=== PATIENT | male | born 1985 | race Hispanic/Latino ===

== ENCOUNTER 2018-05-05 01:54 | Emergency (ER) | payer SELFPAY ==
--- NOTE | 2018-05-05 03:48 | EDPHYS ---
Physician Documentation [facility] Name: Bruce Rosales Age: 32 yrs Sex: Male : 1985 Arrival Date: 05/05/2018 Time: 01:58 Bed 14 Private MD: ED Physician Oneal Zeng HPI: 05/05 07:01 This 32 yrs old Male presents to ER via Ambulatory with complaints of Itching, tw4 Rash. 07:01 The patient's rash thought to be caused by food. The rash is located on the body tw4 diffusely. The rash can be described as urticarial. Onset: The symptoms/episode began/occurred today. Associated signs and symptoms: Pertinent positives: itching, Pertinent negatives: difficulty breathing, swelling of lips, swelling of throat, swelling of tongue, vomiting, wheezing. Severity of symptoms: At their worst the symptoms were moderate in the emergency department the symptoms are unchanged. The patient has not experienced similar symptoms in the past. Historical: - Allergies: 02:28 No Known Allergies; bb - Home Meds: 02:28 None [Active]; bb - PMHx: 02:28 None; bb - PSHx: 02:28 None; bb - Immunization history:: Adult Immunizations up to date. - Social history:: Smoking status: Patient/guardian denies using tobacco, Patient uses alcohol, occasionally. Patient/guardian denies using street drugs. - Ebola Screening: : No symptoms or risks identified at this time. ROS: 07:01 Constitutional: Negative for fever, chills, and weight loss, Eyes: Negative for injury, tw4 pain, redness, and discharge, Cardiovascular: Negative for chest pain, palpitations, and edema, Respiratory: Negative for shortness of breath, cough, wheezing, and pleuritic chest pain, Abdomen/GI: Negative for abdominal pain, nausea, vomiting, diarrhea, and constipation, Back: Negative for injury and pain, MS/Extremity: Negative for injury and deformity. 07:01 Skin: Positive for rash, diffusely. Exam: 07:01 Constitutional: This is a well developed, well nourished patient who is awake, alert, tw4 and in no acute distress. Head/Face: Normocephalic, atraumatic. Chest/axilla: Normal chest wall appearance and motion. Nontender with no deformity. No lesions are appreciated. Cardiovascular: Regular rate and rhythm with a normal S1 and S2. No gallops, murmurs, or rubs. Normal PMI, no JVD. No pulse deficits. Respiratory: Lungs have equal breath sounds bilaterally, clear to auscultation and percussion. No rales, rhonchi or wheezes noted. No increased work of breathing, no retractions or nasal flaring. Abdomen/GI: Soft, non-tender, with normal bowel sounds. No distension or tympany. No guarding or rebound. No evidence of tenderness throughout. MS/ Extremity: Pulses equal, no cyanosis. Neurovascular intact. Full, normal range of motion. 07:01 Skin: consistent with urticaria. Vital Signs: 02:28 BP 120 / 86; Pulse 68; Resp 16 S; Temp 98.2(O); Pulse Ox 96% on R/A; Weight 92.99 kg bb (R); Height 5 ft. 8 in. (172.72 cm) (R); 03:00 BP 119 / 65; Pulse 69; Resp 18; Pulse Ox 100% ; rr5 04:00 BP 121 / 70; Pulse 65; Resp 17; Pulse Ox 99% ; rr5 04:30 BP 119 / 65; Pulse 71; Resp 17; Pulse Ox 99% ; rr5 02:28 Body Mass Index 31.17 (92.99 kg, 172.72 cm) bb MDM: 02:27 Patient medically screened. tw4 07:01 Differential diagnosis: allergic reaction. Data reviewed: vital signs, nurses notes. tw4 Data interpreted: Pulse oximetry: Interpretation: normal. Counseling: I had a detailed discussion with the patient and/or guardian regarding: the historical points, exam findings, and any diagnostic results supporting the discharge/admit diagnosis. Medication response: Solumedrol. Response to treatment: and as a result, I will discharge patient. Special discussion: I discussed with the patient/guardian in detail that at this point there is no indication for admission to the hospital. It is understood, however, that if the symptoms persist or worsen the patient needs to return immediately for re-evaluation. Administered Medications: 04:00 Drug: SOLU-Medrol 125 mg Route: IM; Site: right gluteus; rr5 04:35 Follow up: Response: No adverse reaction rr5 04:02 Drug: Benadryl 25 mg Route: PO; rr5 04:35 Follow up: Response: No adverse reaction rr5 04:02 Drug: Pepcid 20 mg Route: PO; rr5 04:35 Follow up: Response: No adverse reaction rr5 Disposition: 05/05/18 03:47 Discharged to Home. Impression: Allergic reaction. - Condition is Stable. - Discharge Instructions: Food Allergy, Allergies, [id number]. - Prescriptions for Medrol (Stevenson) 4 mg Oral Tablets, Dose Pack - take 1 tablet by ORAL route as directed - follow package instructions; 1 packet. - Medication Reconciliation Form, Thank You Letter, Antibiotic Education, Prescription Opioid Use form. - Follow up: Private Physician; When: Upon discharge from the Emergency Department; Reason: If symptoms return, Recheck today's complaints, Continuance of care. - Problem is new. - Symptoms have improved. Signatures: Marlee Pittman RN RN Oneal Chamberlain MD MD tw4 John Ruiz RN RN rr5 Corrections: (The following items were deleted from the chart) 04:35 03:47 05/05/2018 03:47 Discharged to Home. Impression: Allergic reaction. Condition is rr5 Stable. Forms are Medication Reconciliation Form, Thank You Letter, Antibiotic Education, Prescription Opioid Use. Follow up: Private Physician; When: Upon discharge from the Emergency Department; Reason: If symptoms return, Recheck today's complaints, Continuance of care. Problem is new. Symptoms have improved. tw4
--- NOTE | 2018-05-05 03:48 | ER ---
Nurse's Notes [facility] Name: Bruce Rosales Age: 32 yrs Sex: Male : 1985 Arrival Date: 05/05/2018 Time: 01:58 Bed 14 Private MD: Diagnosis: Allergic reaction Presentation: 05/05 02:26 Presenting complaint: Friend states: pt went to dinner tonight and ate a burrito and bb drank a michilada then about 45 min later broke out in an itchy rash pt denies any known allergies. Transition of care: patient was not received from another setting of care. Onset: The symptoms/episode began/occurred suddenly. Anaphylaxis evaluation, no signs or symptoms of anaphylaxis were noted. Onset of symptoms was May 05, 2018. Risk Assessment: Do you want to hurt yourself or someone else? Patient reports no desire to harm self or others. Initial Sepsis Screen: Does the patient meet any 2 criteria? No. Patient's initial sepsis screen is negative. Does the patient have a suspected source of infection? No. Patient's initial sepsis screen is negative. Care prior to arrival: None. 02:26 Method Of Arrival: Ambulatory bb 02:26 Acuity: MOI 4 bb Historical: - Allergies: 02:28 No Known Allergies; bb - Home Meds: 02:28 None [Active]; bb - PMHx: 02:28 None; bb - PSHx: 02:28 None; bb - Immunization history:: Adult Immunizations up to date. - Social history:: Smoking status: Patient/guardian denies using tobacco, Patient uses alcohol, occasionally. Patient/guardian denies using street drugs. - Ebola Screening: : No symptoms or risks identified at this time. Screenin:00 Abuse screen: Denies threats or abuse. Denies injuries from another. Nutritional rr5 screening: No deficits noted. Tuberculosis screening: No symptoms or risk factors identified. Fall Risk IV access (20 points). Total Garnett Fall Scale indicates No Risk (0-24 pts). Assessment: 02:50 General: Appears in no apparent distress. uncomfortable, Behavior is calm, cooperative, rr5 appropriate for age. Pain: Denies pain. Neuro: Level of Consciousness is awake, alert, obeys commands, Oriented to person, place, time, situation, Appropriate for age. Cardiovascular: Capillary refill < 3 seconds Patient's skin is warm and dry. Respiratory: Airway is patent Respiratory effort is even, unlabored, Respiratory pattern is regular, symmetrical, Breath sounds are clear Denies shortness of breath. GI: No signs and/or symptoms were reported involving the gastrointestinal system. : No signs and/or symptoms were reported regarding the genitourinary system. EENT: No signs and/or symptoms were reported regarding the EENT system. Derm: Skin temperature is warm Rash noted that is red, urticaria, on whole body. Musculoskeletal: Capillary refill < 3 seconds, Range of motion: intact in all extremities. 03:55 Reassessment: Patient appears in no apparent distress at this time. No changes from rr5 previously documented assessment. seen and examined by ED provider with order made and carried out. 04:32 Reassessment: Patient appears in no apparent distress at this time. Patient is alert, rr5 oriented x 3, equal unlabored respirations, skin warm/dry/pink. discharge instruction given and explained without complaints made. Patient states feeling better. Patient states symptoms have improved. Vital Signs: 02:28 BP 120 / 86; Pulse 68; Resp 16 S; Temp 98.2(O); Pulse Ox 96% on R/A; Weight 92.99 kg bb (R); Height 5 ft. 8 in. (172.72 cm) (R); 03:00 BP 119 / 65; Pulse 69; Resp 18; Pulse Ox 100% ; rr5 04:00 BP 121 / 70; Pulse 65; Resp 17; Pulse Ox 99% ; rr5 04:30 BP 119 / 65; Pulse 71; Resp 17; Pulse Ox 99% ; rr5 02:28 Body Mass Index 31.17 (92.99 kg, 172.72 cm) bb ED Course: 01:58 Patient arrived in ED. es 02:27 Oneal Zeng MD is Attending Physician. tw4 02:28 Triage completed. bb 02:28 Arm band placed on Patient placed in an exam room, on a stretcher, on pulse oximetry. bb Family accompanied patient. 02:40 John Ruiz RN is Primary Nurse. rr5 02:40 Patient has correct armband on for positive identification. Placed in gown. Bed in low rr5 position. Call light in reach. Pulse ox on. NIBP on. 02:45 Inserted saline lock: 20 gauge in right forearm, using aseptic technique. rr5 04:33 No provider procedures requiring assistance completed. IV discontinued, intact, rr5 bleeding controlled, No redness/swelling at site. Pressure dressing applied. Administered Medications: 04:00 Drug: SOLU-Medrol 125 mg Route: IM; Site: right gluteus; rr5 04:35 Follow up: Response: No adverse reaction rr5 04:02 Drug: Benadryl 25 mg Route: PO; rr5 04:35 Follow up: Response: No adverse reaction rr5 04:02 Drug: Pepcid 20 mg Route: PO; rr5 04:35 Follow up: Response: No adverse reaction rr5 Outcome: 03:47 Discharge ordered by . tw4 04:33 Discharged to home ambulatory. rr5 04:33 Condition: stable 04:33 Discharge instructions given to patient, Instructed on discharge instructions, follow up and referral plans. medication usage, Demonstrated understanding of instructions, follow-up care, medications, Prescriptions given X 1. 04:35 Patient left the ED. rr5 Signatures: Sabrina Cooper Brenda, RN RN bb Oneal Zeng MD MD tw4 John Ruiz RN RN rr5 Corrections: (The following items were deleted from the chart) 04:14 02:45 Inserted saline lock: 20 gauge in right forearm, using aseptic technique. Blood rr5 collected. rr5
[2018-05-05] MEDS ORDERED: FAMOTIDINE 20 MG TAB ONE (04:05)
[2018-05-05] MEDS ORDERED: DIPHENHYDRAMINE 25 MG TAB/CAP ONE (04:05)
[2018-05-05] MEDS ORDERED: METHYLPREDNISOLONE 125 MG INJ ONE (04:05)
== END 2018-05-05 04:35 | disposition home or self-care (01) ==
LOC: ER 01:54
DX: R21 Rash and other nonspecific skin eruption (principal)
CPT/HCPCS: 96372; 99284; J2930

== ENCOUNTER 2020-04-10 16:27 | Emergency (ER) | payer BC, SELFPAY ==
--- NOTE | 2020-04-10 17:46 | ER ---
Nurse's Notes [facility] Name: Bruce Rosales Age: 34 yrs Sex: Male : 1985 Arrival Date: 04/10/2020 Time: 16:32 Bed 17 Private MD: Diagnosis: Rash and other nonspecific skin eruption Presentation: 04/10 16:44 Chief complaint: Patient states: Rash with itching to body for 2 days. No cough or ll1 fever. No N/V/D. Coronavirus screen: Client denies travel out of the [place] in the last 14 days. At this time, the client does not indicate any symptoms associated with coronavirus-19. Ebola Screen: Patient denies travel to an Ebola-affected area in the 21 days before illness onset. Initial Sepsis Screen: Does the patient meet any 2 criteria? No. Patient's initial sepsis screen is negative. Does the patient have a suspected source of infection? Yes: Other: rash. Risk Assessment: Do you want to hurt yourself or someone else? Patient reports no desire to harm self or others. Onset of symptoms was April 09, 2020. 16:44 Method Of Arrival: Ambulatory ll1 16:44 Acuity: MOI 4 ll1 Historical: - Allergies: 16:44 No Known Allergies; ll1 - PMHx: 16:44 None; ll1 - PSHx: 16:44 None; ll1 - Immunization history:: Flu vaccine status is unknown. - Social history:: Smoking status: Patient denies any tobacco usage or history of. Screenin:30 Abuse screen: Denies threats or abuse. Denies injuries from another. Nutritional dm14 screening: No deficits noted. Tuberculosis screening: No symptoms or risk factors identified. Fall Risk None identified. Assessment: 17:30 General: Appears in no apparent distress. comfortable, well groomed, Behavior is calm, dm14 cooperative, appropriate for age. 17:49 Pain: Denies pain. dm14 Vital Signs: 16:44 BP 139 / 79; Pulse 89; Resp 17; Temp 98.0; Pulse Ox 96% ; Weight 90.72 kg; Height 5 ft. ll1 9 in. (175.26 cm); Pain 0/10; 17:30 BP 112 / 70; Pulse 87; Resp 16; Pulse Ox 98% ; dm14 18:10 BP 128 / 76; Pulse 84; Resp 18; Pulse Ox 99% ; dm14 16:44 Body Mass Index 29.53 (90.72 kg, 175.26 cm) ll1 ED Course: 16:32 Patient arrived in ED. mr 16:44 Arm band placed on. ll1 16:46 Triage completed. 1 17:12 Lauro Sood PA is PHCP. [facility] 17:12 Dl Lakhani MD is Attending Physician. [facility] 17:15 Yovana Inman, BRUNO is Primary Nurse. dm14 17:30 Patient has correct armband on for positive identification. Bed in low position. Call dm14 light in reach. 17:30 No provider procedures requiring assistance completed. Patient did not have IV access dm14 during this emergency room visit. Administered Medications: No medications were administered Outcome: 17:45 Discharge ordered by . [facility] 18:10 Discharged to home dm14 18:10 Condition: stable 18:10 Discharge instructions given to patient, Instructed on discharge instructions, medication usage, Demonstrated understanding of instructions, medications. 18:17 Patient left the ED. dm14 Signatures: Lauro Sood PA PA jm Meghann RodríguezFlorecita, RN RN 1 Yovana Inman, BRUNO RN dm14 Corrections: (The following items were deleted from the chart) 17:49 17:49 General: Appears in no apparent distress. comfortable, well groomed, Behavior is dm14 calm, cooperative, appropriate for age, dm14
--- NOTE | 2020-04-10 17:46 | EDPHYS ---
Physician Documentation [facility] Name: Bruce Rosales Age: 34 yrs Sex: Male : 1985 Arrival Date: 04/10/2020 Time: 16:32 Bed 17 Private MD: ED Physician Dl Lakhani HPI: 04/10 17:43 This 34 yrs old Male presents to ER via Ambulatory with complaints of Rash. [facility] 17:43 The patient's rash thought to be caused by an unknown cause. The rash is located on the jmm right arm and left arm. Onset: The symptoms/episode began/occurred 1 day(s) ago. Associated signs and symptoms: Pertinent positives: itching, Pertinent negatives: difficulty breathing, fever, Pain swelling of lips, swelling of throat, swelling of tongue. The patient has not experienced similar symptoms in the past. Historical: - Allergies: 16:44 No Known Allergies; ll1 - PMHx: 16:44 None; ll1 - PSHx: 16:44 None; ll1 - Immunization history:: Flu vaccine status is unknown. - Social history:: Smoking status: Patient denies any tobacco usage or history of. ROS: 17:43 Constitutional: Negative for fever, chills, and weight loss, Cardiovascular: Negative jm for chest pain, palpitations, and edema, Respiratory: Negative for shortness of breath, cough, wheezing, and pleuritic chest pain. 17:43 Skin: Positive for rash. 17:43 All other systems are negative. Exam: 17:43 Constitutional: This is a well developed, well nourished patient who is awake, alert, jmm and in no acute distress. Head/Face: atraumatic. Eyes: EOMI, no conjunctival erythema appreciated ENT: Moist Mucus Membranes Neck: Trachea midline, Supple Chest/axilla: Normal chest wall appearance and motion. Cardiovascular: Regular rate and rhythm. No edema appreciated Respiratory: Normal respirations, no respiratory distress appreciated Abdomen/GI: Non distended, soft Back: Normal ROM 17:43 MS/ Extremity: Moves all extremities, no obvious deformities appreciated, no edema noted to the lower extremities Neuro: Awake and alert, normal gait Psych: Behavior is normal, Mood is normal, Patient is cooperative and pleasant 17:43 Skin: on the right arm and left arm. Vital Signs: 16:44 BP 139 / 79; Pulse 89; Resp 17; Temp 98.0; Pulse Ox 96% ; Weight 90.72 kg; Height 5 ft. ll1 9 in. (175.26 cm); Pain 0/10; 17:30 BP 112 / 70; Pulse 87; Resp 16; Pulse Ox 98% ; dm14 18:10 BP 128 / 76; Pulse 84; Resp 18; Pulse Ox 99% ; dm14 16:44 Body Mass Index 29.53 (90.72 kg, 175.26 cm) ll1 MDM: 17:42 Patient medically screened. [facility] 17:44 Data reviewed: vital signs, nurses notes. Counseling: I had a detailed discussion with quintin the patient and/or guardian regarding: the historical points, exam findings, and any diagnostic results supporting the discharge/admit diagnosis, the need for outpatient follow up, to return to the emergency department if symptoms worsen or persist or if there are any questions or concerns that arise at home. ED course: Patient is alert and non toxic in appearance in the ED. No signs of resp distress. patient is advised to follow up with pcp and otherwise given strict return precautions. Patient understood and agrees with the plano fcare. . Administered Medications: No medications were administered Disposition: 04/10/20 17:45 Discharged to Home. Impression: Rash and other nonspecific skin eruption. - Condition is Stable. - Discharge Instructions: Rash. - Prescriptions for Hydroxyzine HCl 25 mg Oral Tablet - take 1 tablet by ORAL route every 6 hours As needed; 30 tablet. Prednisone 20 mg Oral Tablet - take 3 tablet by ORAL route once daily for 5 days; 15 tablet. - Medication Reconciliation Form, Thank You Letter, Antibiotic Education, Prescription Opioid Use, Work release form form. - Follow up: Private Physician; When: 2 - 3 days; Reason: Recheck today's complaints, Continuance of care, Re-evaluation by your physician. Addendum: 04/13/2020 05:04 Co-signature as Attending Physician, Dl Lakhani MD I agree with the assessment and k dr plan of care. Signatures: Dl Lakhani MD MD kdr Mickail, Joel, PA PA jmm Lewis, Lynsay RN RN ll1 Yovana Inman RN RN dm14 Corrections: (The following items were deleted from the chart) 04/10 18:17 17:45 04/10/2020 17:45 Discharged to Home. Impression: Rash and other nonspecific skin dm14 eruption. Condition is Stable. Forms are Medication Reconciliation Form, Thank You Letter, Antibiotic Education, Prescription Opioid Use. Follow up: Private Physician; When: 2 - 3 days; Reason: Recheck today's complaints, Continuance of care, Re-evaluation by your physician. quintin
[2020-04-10 18:50] VITALS: TEMP 98
[2020-04-10 18:52] VITALS: BP 128/76; O2SAT 99
== END 2020-04-10 18:17 | disposition home or self-care (01) ==
LOC: ER 16:27
DX: R21 Rash and other nonspecific skin eruption (principal)
CPT/HCPCS: 99281

== ENCOUNTER 2020-04-28 23:31 | Inpatient (IN) | payer BC, SELFPAY ==
[2020-04-29] MEDS ORDERED: MORPHINE 4 MG/ML SYR ONE (01:30)
[2020-04-29] MEDS ORDERED: FAMOTIDINE 20 MG/2 ML VIAL IV ONE (01:30)
[2020-04-29] MEDS ORDERED: ONDANSETRON 4 MG/2 ML VIAL ONE ×3 (01:30→11:50)
[2020-04-29] MEDS ORDERED: NA CHLORIDE 0.9% 1,000 ML ONE (01:30)
[2020-04-29 01:44] LABS: ALT/SGPT 73 U/L (12-78); AST/SGOT 26 U/L (15-37); Albumin 4.1 g/dL (3.4-5.0); Alkaline Phosphatase 78 U/L (45-117); BUN Blood Urea Nitrogen 14 mg/dL (7-18); Bicarbonate 26 mmol/L (21-32); Bilirubin Direct 0.1 mg/dL (0-0.2); Bilirubin Total 0.5 mg/dL (0.2-1.0); Glucose Level 143 mg/dL (74-106); Lipase 102 U/L (73-393); Potassium 3.9 mmol/L (3.5-5.1); Sodium Level 138 mmol/L (136-145)
[2020-04-29 02:13] LABS: Basophils % 0.4 % (0-1.3); Hematocrit 43.9 % (39.6-49.0); Lymphocytes % 4.5 % (15.3-44.8); MPV 8.7 fL (7.6-11.3); RBC Red Blood Cell Count 5.41 M/uL (4.33-5.43)
--- NOTE | 2020-04-29 02:30 | ER ---
Nurse's Notes [facility] Name: Bruce Rosales Age: 34 yrs Sex: Male : 1985 Arrival Date: 04/29/2020 Time: 00:12 Bed 6 Private MD: Diagnosis: Abdominal tenderness;Acute appendicitis Presentation: 04/29 00:19 Acuity: MOI 3 sg 00:19 Chief complaint: Patient states: upper and lower abdominal pain with nausea that comes sg and goes. Initial Sepsis Screen: Does the patient meet any 2 criteria? No. Patient's initial sepsis screen is negative. Does the patient have a suspected source of infection? No. Patient's initial sepsis screen is negative. Risk Assessment: Do you want to hurt yourself or someone else? Patient reports no desire to harm self or others. Onset of symptoms was April 29, 2020. 00:19 Method Of Arrival: Ambulatory sg 03:00 Ebola Screen: No symptoms or risks identified at this time. ea 03:01 Coronavirus screen: At this time, the client does not indicate any symptoms associated ea with coronavirus-19. Historical: - Allergies: 01:03 No Known Allergies; sg - PSHx: 01:03 None; sg - Immunization history:: Adult Immunizations unknown. - Family history:: not pertinent. - Social history:: Smoking status: unknown. Screenin:25 Abuse screen: Denies threats or abuse. Nutritional screening: No deficits noted. em Tuberculosis screening: No symptoms or risk factors identified. Fall Risk None identified. Assessment: 01:20 General: Appears in no apparent distress. comfortable, Behavior is calm, cooperative, em appropriate for age, Denies fever. Pain: Complains of pain in left upper quadrant and right upper quadrant Pain currently is 1 out of 10 on a pain scale. Neuro: Level of Consciousness is awake, alert, obeys commands, Oriented to person, place, time, situation. Cardiovascular: Capillary refill < 3 seconds Patient's skin is warm and dry. Respiratory: Airway is patent Respiratory effort is even, unlabored, Respiratory pattern is regular, symmetrical. GI: Abdomen is flat, Bowel sounds present X 4 quads. Abd is soft X 4 quads Abdomen is tender to palpation in right upper quadrant and left upper quadrant Reports nausea, vomiting. Derm: Skin is intact, is healthy with good turgor, Skin is pink, warm \T\ dry. Musculoskeletal: Capillary refill < 3 seconds, Range of motion: intact in all extremities. 01:24 Reassessment: pt currently refused pain medications at this time. em 01:45 Reassessment: pt wheeled to CT via stretcher. em 03:00 Reassessment: Patient and/or family updated on plan of care and expected duration. Pain ea level reassessed. Patient is alert, oriented x 3, equal unlabored respirations, skin warm/dry/pink. 04:14 Reassessment: Patient appears in no apparent distress at this time. Patient and/or em family updated on plan of care and expected duration. Pain level reassessed. Patient is alert, oriented x 3, equal unlabored respirations, skin warm/dry/pink. 07:49 General: Appears in no apparent distress. comfortable, Behavior is calm, cooperative. ss Neuro: Level of Consciousness is awake, alert, obeys commands. Respiratory: Airway is patent Respiratory effort is even, unlabored, Respiratory pattern is regular, symmetrical. : No signs and/or symptoms were reported regarding the genitourinary system. EENT: Oral mucosa is moist. 07:50 Reassessment: Attempted to call report. Nurse unavailable and will call back soon. 07:55 Reassessment: Report given to BRUON Mccarthy. Vital Signs: 01:39 BP 115 / 72; Pulse 85; Resp 18; Temp 97.5; Pulse Ox 99% on R/A; Weight 95.25 kg; Height em 5 ft. 9 in. (175.26 cm); Pain 1/10; 03:49 BP 113 / 81; Pulse 87; Resp 18; Pulse Ox 97% on R/A; em 01:39 Body Mass Index 31.01 (95.25 kg, 175.26 cm) ED Course: 00:12 Patient arrived in ED. am4 00:19 Triage completed. sg 01:00 Nik Lopez MD is Attending Physician. [facility] 01:02 Arm band placed on. sg 01:10 He Hernandez, BRUNO is Primary Nurse. em 01:14 Inserted saline lock: 20 gauge in right antecubital area, using aseptic technique. ds4 Blood collected. 01:25 Patient has correct armband on for positive identification. Call light in reach. Side em rails up X2. Pulse ox on. NIBP on. 02:00 CT Abd/Pelvis - IV Contrast Only In Process Unspecified. EDMS 02:29 William Miles MD is Hospitalizing Provider. [facility] 03:00 No provider procedures requiring assistance completed. Patient admitted, IV remains in ea place. Administered Medications: 01:24 Drug: NS 0.9% 1000 ml Route: IV; Rate: 1 bolus; Site: right antecubital; em 03:25 Follow up: IV Status: Completed infusion; IV Intake: 1000ml em 02:59 Drug: Zosyn 3.375 grams Route: IVPB; Infused Over: 60 mins; Site: right antecubital; ea 07:37 Follow up: IV Status: Completed infusion; infusion completed prior to recieving report ss Intake: 03:25 IV: 1000ml; Total: 1000ml. em Outcome: 02:30 Decision to Hospitalize by Provider. [facility] 03:01 Instructed on the need for admit. ea 08:10 Patient left the ED. hb Signatures: Dispatcher [employer] Brock Choe, RN RN Nik Alcaraz MD MD cha Munoz, Edgar, RN RN Thu Cabezas RN RN Cuate Wilkins ds4 Radha Smallwood RN RN Sonali Redmond RN RN Mariah Jones am4
--- NOTE | 2020-04-29 02:30 | EDPHYS ---
Physician Documentation [facility] Name: Bruce Rosales Age: 34 yrs Sex: Male : 1985 Arrival Date: 04/29/2020 Time: 00:12 Bed 6 Private MD: ED Physician Nik Lopez HPI: 04/29 01:07 This 34 yrs old Male presents to ER via Ambulatory with complaints of mercy Abdominal Pain. 01:07 The patient presents with abdominal pain in the epigastric area, in the upper abdomen. mercy Onset: The symptoms/episode began/occurred 6 hour(s) ago. The symptoms do not radiate. Associated signs and symptoms: none. The symptoms are described as constant, crampy. Modifying factors: The symptoms are alleviated by nothing, the symptoms are aggravated by food. Severity of pain: At its worst the pain was moderate in the emergency department the pain is unchanged. The patient has experienced similar episodes in the past, a few times. Historical: - Allergies: 01:03 No Known Allergies; sg - PSHx: 01:03 None; sg - Immunization history:: Adult Immunizations unknown. - Family history:: not pertinent. - Social history:: Smoking status: unknown. ROS: 01:07 Constitutional: Negative for fever, chills, and weight loss, Eyes: Negative for injury, mercy pain, redness, and discharge, ENT: Negative for injury, pain, and discharge, Neck: Negative for injury, pain, and swelling, Cardiovascular: Negative for chest pain, palpitations, and edema, Respiratory: Negative for shortness of breath, cough, wheezing, and pleuritic chest pain, Back: Negative for injury and pain, : Negative for injury, bleeding, discharge, and swelling, MS/Extremity: Negative for injury and deformity, Skin: Negative for injury, rash, and discoloration, Neuro: Negative for headache, weakness, numbness, tingling, and seizure, Psych: Negative for depression, anxiety, suicide ideation, homicidal ideation, and hallucinations, Allergy/Immunology: Negative for hives, rash, and allergies, Endocrine: Negative for neck swelling, polydipsia, polyuria, polyphagia, and marked weight changes, Hematologic/Lymphatic: Negative for swollen nodes, abnormal bleeding, and unusual bruising. 01:07 Abdomen/GI: Positive for abdominal pain, of the right upper quadrant and left upper quadrant. Exam: 01:07 Constitutional: This is a well developed, well nourished patient who is awake, alert, mercy and in no acute distress. Head/Face: Normocephalic, atraumatic. Eyes: Pupils equal round and reactive to light, extra-ocular motions intact. Lids and lashes normal. Conjunctiva and sclera are non-icteric and not injected. Cornea within normal limits. Periorbital areas with no swelling, redness, or edema. ENT: Nares patent. No nasal discharge, no septal abnormalities noted. Tympanic membranes are normal and external auditory canals are clear. Oropharynx with no redness, swelling, or masses, exudates, or evidence of obstruction, uvula midline. Mucous membranes moist. Neck: Trachea midline, no thyromegaly or masses palpated, and no cervical lymphadenopathy. Supple, full range of motion without nuchal rigidity, or vertebral point tenderness. No Meningismus. Chest/axilla: Normal chest wall appearance and motion. Nontender with no deformity. No lesions are appreciated. Cardiovascular: Regular rate and rhythm with a normal S1 and S2. No gallops, murmurs, or rubs. Normal PMI, no JVD. No pulse deficits. Respiratory: Lungs have equal breath sounds bilaterally, clear to auscultation and percussion. No rales, rhonchi or wheezes noted. No increased work of breathing, no retractions or nasal flaring. Back: No spinal tenderness. No costovertebral tenderness. Full range of motion. Male : Normal genitalia with no discharge or lesions. Skin: Warm, dry with normal turgor. Normal color with no rashes, no lesions, and no evidence of cellulitis. MS/ Extremity: Pulses equal, no cyanosis. Neurovascular intact. Full, normal range of motion. Neuro: Awake and alert, GCS 15, oriented to person, place, time, and situation. Cranial nerves II-XII grossly intact. Motor strength 5/5 in all extremities. Sensory grossly intact. Cerebellar exam normal. Normal gait. Psych: Awake, alert, with orientation to person, place and time. Behavior, mood, and affect are within normal limits. 01:07 Abdomen/GI: Inspection: abdomen appears normal, Bowel sounds: normal, active, Palpation: mild abdominal tenderness, moderate abdominal tenderness, in the epigastric area, right upper quadrant and left upper quadrant, Liver: no appreciated palpable abnormalities, Hernia: not appreciated. Vital Signs: 01:39 BP 115 / 72; Pulse 85; Resp 18; Temp 97.5; Pulse Ox 99% on R/A; Weight 95.25 kg; Height em 5 ft. 9 in. (175.26 cm); Pain 1/10; 03:49 BP 113 / 81; Pulse 87; Resp 18; Pulse Ox 97% on R/A; em 01:39 Body Mass Index 31.01 (95.25 kg, 175.26 cm) em MDM: 01:00 Patient medically screened. [facility] 01:09 Differential diagnosis: cholecystitis, Cholelithiasis, diverticulitis, gastritis, mercy gastroesophageal reflux disease, Irritable bowel syndrome, non-specific abd pain, pancreatitis, Peptic Ulcer Disease, urinary tract infection. Data reviewed: vital signs, nurses notes, lab test result(s), EKG, radiologic studies, CT scan. Data interpreted: library monitor: rate is 85 beats/min, rhythm is regular, Pulse oximetry: on room air is 100 %. Test interpretation: by ED physician or midlevel provider: ECG, plain radiologic studies. Counseling: I had a detailed discussion with the patient and/or guardian regarding: the historical points, exam findings, and any diagnostic results supporting the discharge/admit diagnosis, the presence of at least one elevated blood pressure reading (>120/80) during this emergency department visit. 04/29 01:06 Order name: Basic Metabolic Panel; Complete Time: 01:57 [facility] 04/29 01:06 Order name: CBC with Diff [facility] 04/29 01:06 Order name: Hepatic Function; Complete Time: 01:57 [facility] 04/29 01:06 Order name: Lipase; Complete Time: 01:57 [facility] 04/29 01:45 Order name: CREATININE WHOLE BLOOD; Complete Time: 01:57 [facility] 04/29 02:30 Order name: Manual Differential [facility] 04/29 01:06 Order name: CT Abd/Pelvis - IV Contrast Only [facility] 04/29 03:09 Order name: COVID-19 : Document "Date of Symptom Onset" if Symptomatic. em 04/29 03:49 Order name: Urine Dipstick--Ancillary (enter results) tt3 04/29 04:29 Order name: CORONAVIRUS [facility] 04/29 05:30 Order name: SARS-COV-2 RT PCR [facility] 04/29 01:06 Order name: IV Saline Lock; Complete Time: 01:18 [facility] 04/29 01:06 Order name: Labs collected and sent; Complete Time: 01:18 [facility] 04/29 01:06 Order name: Urine Dipstick-Ancillary (obtain specimen); Complete Time: 03:48 [facility] Administered Medications: 01:24 Drug: NS 0.9% 1000 ml Route: IV; Rate: 1 bolus; Site: right antecubital; em 03:25 Follow up: IV Status: Completed infusion; IV Intake: 1000ml em 02:59 Drug: Zosyn 3.375 grams Route: IVPB; Infused Over: 60 mins; Site: right antecubital; ea 07:37 Follow up: IV Status: Completed infusion; infusion completed prior to recieving report ss Disposition: 04/29/20 02:30 Hospitalization ordered by William Miles for Observation. Preliminary diagnosis are Abdominal tenderness, Acute appendicitis. - Bed requested for Telemetry/MedSurg (observation). - Status is Observation. hb - Condition is Stable. - Problem is new. - Symptoms have improved. Signatures: Dispatcher [employer] [facility] Jennie Hodgosn RN RN dw Gay, Steven, RN RN sg Anderson, Corey, MD MD cha Munoz, Edgar RN RN em Radha Smallwood RN RN hb Antunez, Elena, RN RN ea Smirch, Shelby RN Corrections: (The following items were deleted from the chart) 03:12 02:30 Hospitalization Ordered by William Miles MD for Observation. Preliminary diagnosis sg is Abdominal tenderness; Acute appendicitis. Bed requested for Telemetry/MedSurg (observation). Status is Observation. Condition is Stable. Problem is new. Symptoms have improved. [facility] 05:40 03:12 04/29/2020 02:30 Hospitalization Ordered by William Miles MD for Observation. dw Preliminary diagnosis is Abdominal tenderness; Acute appendicitis. Bed requested for [facility] ER HOLD. Status is Observation. Condition is Stable. Problem is new. Symptoms have improved. sg 08:10 05:40 04/29/2020 02:30 Hospitalization Ordered by William Miles MD for Observation. hb Preliminary diagnosis is Abdominal tenderness; Acute appendicitis. Bed requested for Telemetry/MedSurg (observation). Status is Observation. Condition is Stable. Problem is new. Symptoms have improved. dw
[2020-04-29] MEDS ORDERED: PIPER/TAZO/NS 3.375gm 3.375 GM/100 ML BAG ONE (03:09)
[2020-04-29 03:45] LABS: Blood Morphology Comment NOT SEEN (NOT SEEN); Platelet Estimate ADEQ
[2020-04-29] MEDS ORDERED: ACETAMINOPHEN 500 MG TAB PO PRN (04:47)
[2020-04-29] MEDS ORDERED: D5 0.45 NS 1,000 ML IV SCH (04:47)
[2020-04-29] MEDS ORDERED: MORPHINE 4 MG/ML SYR IV PRN (04:47)
[2020-04-29] MEDS ORDERED: ONDANSETRON 4 MG/2 ML VIAL IV PRN (04:47)
[2020-04-29] MEDS ORDERED: D5 0.45 NS 1,000 ML IV ONE (05:10)
[2020-04-29] MEDS: PIPER/TAZO/NS 3.375gm 3.375 GM/100 ML BAG IVPB SCH ×2 (07:00→12:57)
[2020-04-29 08:46] VITALS: BMI 31.1
[2020-04-29] MEDS: FAMOTIDINE 20 MG/2 ML VIAL IV SCH ×2 (09:00→12:03)
[2020-04-29] MEDS ORDERED: Ringers Lactate 1,000 ML IV ONE ×2 (09:21→11:44)
[2020-04-29] MEDS ORDERED: BUPIVACA 0.5%/EPI 0.0005%/PF 30 ML VIAL ONE (09:31)
[2020-04-29] MEDS ORDERED: BUPIVACAINE 0.25% PF 30 ML VIAL ONE (09:31)
[2020-04-29] MEDS ORDERED: FENTANYL CITR 100 MCG/2 ML ONE ×3 (09:54→11:03)
[2020-04-29] MEDS ORDERED: propofoL 200 MG/20 ML VIAL IV ONE (09:55)
[2020-04-29] MEDS ORDERED: MIDAZOLAM HCL 2 MG/2 ML INJ ONE (09:55)
[2020-04-29] MEDS ORDERED: LIDOCAINE 2% MPF 5 ML VIAL ONE (09:56)
[2020-04-29] MEDS ORDERED: GLYCOPYRROLATE 0.2 MG/ML SYR ONE (10:00)
[2020-04-29] MEDS ORDERED: ROCURONIUM 50 MG/5 ML VIAL IV ONE (10:00)
[2020-04-29] MEDS ORDERED: NEOSTIGMINE 1 MG/ML -5 ML ONE (10:27)
--- NOTE | 2020-04-29 10:31 | HP ---
Date of Admission: 04/29/2020 Brief History Of Present Illness: The patient is a 34-year-old male, who presents to the hospital wi complaints of abdominal pain beginning approximately 1 day prior to his presentation, which starte d in the periumbilical region and located to the right lower quadrant. He states that it happened ap proximately 5 p.m. the day prior. He never had similar episodes before in the past. No sick contact s. No recent travel. No new food exposures. Past Medical History: Denies. Past Surgical History: Cholecystectomy. Allergies: NO KNOWN DRUG ALLERGIES. Medications: None. Social History: He denies smoking, alcohol, or recreational drug use. Review of Systems: A 10-point review of systems other than HPI, denies. Physical Examination: Vital Signs: At the time of my examination his vital signs were a BMI of 31.1. His heart rate was 8 6, blood pressure 111/63, respiratory rate 18, temperature 98.5, SpO2 95% on room air. General: He is awake, alert, oriented. Psychiatric: Appropriate and conversive. HEENT: He is normocephalic. Sclerae icteric. Mucous members are moist. Oropharynx clear. Neck: Supple without JVD. Chest: Normal expansion and excursion. Cardiovascular: Regular rate and rhythm. Pulmonary: Clear to auscultation bilaterally. Abdomen: Soft with positive right lower quadrant tenderness to palpation. Positive focal peritoniti s at McBurney point. Positive rebound. Positive guarding. Extremities: No clubbing, cyanosis, or edema. Skin: Warm and dry. Laboratory Data: Reveals a white blood cell count of 22.6, hemoglobin is 14.6, hematocrit 43.9, plat elet count is 228, neutrophils 91%. Sodium 138, potassium 2.9, chloride 106, carbon dioxide 26, BUN 14, creatinine 0.8, glucose is 143, total bilirubin 0.5, direct component 0.1, AST 26, ALT 73, alkali ne phosphatase 78, lipase 102. He had a CT scan performed of the abdomen and pelvis, which was offic ially read by the [facility] radiologist as acute appendicitis. No evidence for abscess formation and /or perforation. Minimal reactive changes in the right lower quadrant, mesenteric lymph nodes, statu s post cholecystectomy. Assessment/plan: This is a 34-year-old male, who presents with signs and symptoms of acute nonperfor ated appendicitis. 1.IV fluid hydration. 2.Antibiotic coverage. 3.I have explained the risks, benefits, and alternatives of laparoscopic, possible open appendectomy including, but not limited to bleeding, infection, damage to the surrounding tissue, need for furthe r operation, procedure. The patient agrees to proceed as indicated. FELIPE/MARTINE Voice ID: [id number]
--- NOTE | 2020-04-29 10:45 | RAD REPORT ---
EXAM DESCRIPTION: CT - Abdomen Pelvis W Contrast - 04/29/2020 6:58 am ADDENDUM #1 THIS REPORT CONTAINS FINDINGS THAT MAY BE CRITICAL TO PATIENT CARE: Called, telephoned, verbal repo rt was given oral to Dr. Nik Lopez at 2:18 AM CDT on 04/29/2020. Electronically signed by: Usman Marrufo MD 04/29/2020 3:13 AM CDT End of Addendum EXAM DESCRIPTION: Abdomen Pelvis W Contrast 04/29/2020 2:07 AM CDT CLINICAL HISTORY: 34 years, Male, ABD PAIN COMPARISON: None. TECHNIQUE: Contrast-enhanced images of the abdomen and pelvis were performed utilizing 2 mm slice th ickness at 2 mm interval reconstruction from the lung bases to the ischial tuberosities after the adm inistration of IV contrast. No dosing amount was provided for interpretation. In addition delayed por florinda venous phase was also generated. In addition multiplanar reformats in the coronal and sagittal plane were obtained and reviewed. An individualized dose optimization technique, Automated Exposure Control, was utilized for the perfo rmed procedure. FINDINGS: The lung bases demonstrate minimal dependent atelectatic changes/motion. The liver demonstrate decreased attenuation corresponding to mild fatty infiltration. Otherwise the l iver, pancreas, spleen and adrenal glands demonstrate to be unremarkable, no focal lesions are noted. Clips within the gallbladder fossa corresponding to previous cholecystectomy The kidneys demonstrate normal uptake of contrast media. No nephrolithiasis and/or hydronephrosis w as identified. Grossly the unopacified stomach, small bowel and large bowel demonstrate to be within normal limits. There is no evidence for bowel dilatation/or free air. There is prominent distal tip of the appendix within the right lower quadrant with a maximal diameter of the 11.4 mm with minimal surrounding peria ppendiceal inflammatory changes is identified on image 63/171 suspicious for acute appendicitis. Ther e is no evidence for abscess formation and/or perforation. Minimal reactive right lower quadrant mese nteric lymph nodes are seen. The urinary bladder demonstrate to be unremarkable. The prostate gland is normal. The aorta demon strate to be normal. There is no retroperitoneal lymphadenopathy. There is no evidence for ascites and/or significant abnormal fluid collections. The rest of the soft tissue and bony structures are wi thin normal limits. IMPRESSION: Acute appendicitis. There is no evidence for abscess formation and/or perforation. Minim al reactive right lower quadrant mesenteric lymph nodes. Status post cholecystectomy. Mild fatty infiltration of the liver. Electronically signed by: Usman Marrufo MD 04/29/2020 2:11 AM CDT Due to temporary technical issues with the PACS/Fluency reporting system, reports are being signed by the in house radiologists without review as a courtesy to insure prompt reporting. The interpreting radiologist is fully responsible for the content of the report.
--- NOTE | 2020-04-29 11:05 | P.OP ---
Preoperative diagnosis: Acute non-perforated appendicitis Postoperative diagnosis: Acute non-perforated appendicitis Primary procedure: Laparoscopic Appendectomy Anesthesia: GETA + Local Estimated blood loss: <20cc Specimen: Vermiform Appendix Findings: Acute non-perforated appendicitis, oozing from all cut surfaces Complications: None Transferred to: Recovery Room Condition: Good
[2020-04-29] MEDS ORDERED: ACETAMINOPHEN 325 MG TABLET PO PRN (11:16)
[2020-04-29 11:39] VITALS: O2SAT 93
[2020-04-29] MEDS ORDERED: MEPERIDINE HCL 25 MG/ML SYR ONE (11:39)
--- NOTE | 2020-04-29 11:52 | OP ---
Date of Procedure: 04/29/2020 Surgeon: William Milse MD, Preoperative Diagnosis: Acute nonperforated appendicitis. Postoperative Diagnosis: Acute nonperforated appendicitis. Procedure Performed: Laparoscopic appendectomy. Anesthesia: General endotracheal plus local with 0.5% Marcaine with epinephrine. Estimated Blood Loss: Less than 20 mL. Specimen: Vermiform appendix. Findings: Acute nonperforated appendicitis. The appendix had been in the retrocecal position. Ther e was oozing from all cut surfaces. Complications: None. Disposition: The patient was transferred to recovery room in good condition. Procedure In Detail: After informed consent was obtained, the patient was brought to the operating r oom, prepped and draped in the usual sterile fashion. After adequate anesthesia was achieved, infrau mbilical area was anesthetized 0.5% Marcaine with epinephrine, sharply incised and a 5 mm 0-degree op tical trocar was introduced in the abdomen without evidence of complication. Insufflation was obtain ed to 15 mmHg at this time. There was no injury to vital structures upon entry to the abdomen. Two additional trocars were placed, 1 in the right lower quadrant and 1 in the left lower quadrant. Both of these were similarly anesthetized and sharply incised. A 5 mm trocar was introduced in the abdom en without evidence of complication. I then upsized the umbilical trocar to a 12 mm under direct vis ualization without evidence of complication. There was some oozing from all cut surfaces including t he trocar entry sites at this point. The patient was positioned head down right side up position. R atchet grasper was used to identify the appendix, found at the confluence of the cecum. It was tortu ous and had significant inflammatory change as well as significant scar tissue evident on the anterio r surface making it flipped around on the lateral wall in an almost retrocecal position. Mobilizatio n was required at this point with LigaSure to free it up from the surrounding tissues. At this point , a mesoappendiceal window was created with the LigaSure, [place] and an Endo CHRISTIANE 35 blue load fired across the base of the appendix with good approximation of tissues. There was minimal bleeding from the staple line. As such, an additional clip was placed on this with good hemostasis at this point. The mesoappendix was then taken down using the LigaSure device with minimal oozing and general low- grade oozing from the cut surfaces. These were controlled with LigaSure until it was completely dry. The appendix was then placed in an EndoCatch bag, removed through the umbilical trocar site and sen t off for pathologic examination. The abdomen was copiously irrigated multiple times and suctioned u ntil completely clear. I then irrigated the area once again, suctioned out the pelvis, irrigated the pelvis and suctioned out once again, returned back to the right lower quadrant. No bleeding was emil dent in this area and had good hemostasis. I irrigated and suctioned out one last time. No addition al hemostatic measures were required. The staple line was found to be in good position at this point . The patient was positioned in neutral position. The umbilical trocar was closed. The umbilical t rocar site was closed using a Freddy-Miguel suture passer with a 0 Vicryl in an interrupted fashion with good approximation of tissues and the abdomen was then desufflated under direct visualization w ithout evidence of complication. All remaining trocars were removed. All skin incisions were copiou sly irrigated and closed with interrupted lauren and sterile dressing was placed over top. The jay ent tolerated the procedure well without evidence of complication and transferred to PACU in good con dition. All counts were correct at the end of the case. FELIPE/MARTINE Voice ID: [id number] Report ID: [id number]
[2020-04-29] MEDS ORDERED: HYDROCODONE/APAP 5/325 MG TAB PO ONE (12:48)
[2020-04-29 13:16] VITALS: BP 106/65; TEMP 97.3
== END 2020-04-29 14:46 | disposition home or self-care (01) | DRG 343 ==
LOC: ER 23:31 → ERHOLD 04-29 02:39 → 2ND 04-29 07:40 → OBSVTOIN 04-29 08:31
PROVIDERS: ADMIT Surgery; ATTEND Surgery
PROC: 0DTJ4ZZ Resection of Appendix, Percutaneous Endoscopic Approach (ICD-10-PCS; principal; 2020-04-29 12:00)
DX: K35.80 Unspecified acute appendicitis (principal); Z90.49 Acquired absence of other specified parts of digestive tract; Z20.822 Contact with and (suspected) exposure to COVID-19
CPT/HCPCS: 36415; 74177; 80048; 80076; 82565; 83690; 85025; 88304; 96361; 96365; 96366; 99284; G0378; J2175; J2250; J2405; J2543; J2704; J2710; J3010; J7030; J7120; J7799; Q9967; U0003

== ENCOUNTER 2021-06-09 18:42 | Emergency (ER) | payer BC, SELFPAY ==
--- NOTE | 2021-06-09 19:57 | ER ---
Nurse's Notes [facility] Name: Bruce Rosales Age: 35 yrs Sex: Male : 1985 Arrival Date: 06/09/2021 Time: 18:44 Bed 10 [facility] MD: Diagnosis: Finger Laceration Presentation: 06/09 18:49 Chief complaint: Patient states: Accidentally cut into L hand 2nd digit [address] ll1 Bleeding controlled. Cut through nail. Coronavirus screen: Vaccine status: Patient reports being unvaccinated. Client denies travel out of the [place] in the last 14 days. At this time, the client does not indicate any symptoms associated with coronavirus-19. Ebola Screen: Patient denies travel to an Ebola-affected area in the 21 days before illness onset. Initial Sepsis Screen: Does the patient meet any 2 criteria? No. Patient's initial sepsis screen is negative. Does the patient have a suspected source of infection? Yes: Skin breakdown/wound. Risk Assessment: Do you want to hurt yourself or someone else? Patient reports no desire to harm self or others. Onset of symptoms was June 09, 2021. 18:49 Method Of Arrival: Ambulatory ll1 18:49 Acuity: MOI 4 ll1 Triage Assessment: 18:51 General: Appears uncomfortable, Behavior is cooperative, appropriate for age. Pain: ll1 Complains of pain in left hand Quality of pain is described as aching. Derm: laceration <2 cm L hand 2nd digit. Reports. Historical: - Allergies: 18:51 No Known Allergies; ll1 - PMHx: 18:51 None; ll1 - PSHx: 18:51 Appendectomy; Cholecystectomy; ll1 - Immunization history:: Client reports having NOT received the Covid vaccine. Last tetanus immunization: unknown. - Social history:: Smoking status: Patient denies any tobacco usage or history of. Screenin:21 Abuse screen: Denies threats or abuse. Nutritional screening: No deficits noted. ag7 Tuberculosis screening: No symptoms or risk factors identified. Fall Risk No fall in past 12 months (0 pts). No secondary diagnosis (0 pts). No IV (0 pts). Ambulatory Aid- None/Bed Rest/Nurse Assist (0 pts). Gait- Normal/Bed Rest/Wheelchair (0 pts) Mental Status- Oriented to own ability (0 pts). Total Garnett Fall Scale indicates No Risk (0-24 pts). Assessment: 19:00 General: Appears in no apparent distress. Behavior is calm, cooperative, appropriate ag7 for age. Pain: Complains of pain in left hand Pain does not radiate. Pain currently is 8 out of 10 on a pain scale. Quality of pain is described as burning, aching, Pain began suddenly, Is continuous, Alleviated by nothing. Neuro: Level of Consciousness is awake, alert, obeys commands, Oriented to person, place, time, situation, Appropriate for age [employer] are weak on left. Cardiovascular: Capillary refill < 3 seconds in bilateral Patient's skin is warm and dry. Respiratory: Airway is patent Trachea midline Respiratory effort is even, unlabored, Respiratory pattern is regular, symmetrical. Derm: Skin laceration Skin is moist, Skin is pink, warm \T\ dry. Skin temperature is warm Wound noted left hand Other: bleeding under control. Vital Signs: 18:49 BP 164 / 96; Pulse 87; Resp 16; Temp 98.6; Pulse Ox 96% ; Height 5 ft. 8 in. (172.72 ll1 cm); Pain 7/10; ED Course: 18:44 Patient arrived in ED. mr 18:51 Triage completed. ll1 18:51 Arm band placed on. ll1 19:00 Lauro Sood PA is PHCP[facility] 19:00 Dl Lakhani MD is Attending Physician. [facility] 19:23 Monserrat Garcia, BRUNO is Primary Nurse. ag7 20:22 Patient has correct armband on for positive identification. Call light in reach. ag7 20:22 No provider procedures requiring assistance completed. Patient did not have IV access ag7 during this emergency room visit. Administered Medications: 20:18 Drug: Tetanus-Diphtheria Toxoid Adult 0.5 ml {Assistant Shift Supervisor: [employer]. Exp: ag7 04/24/2023. Lot #: [id number]. } Route: IM; Site: left deltoid; 20:32 Follow up: Response: No adverse reaction ag7 Outcome: 19:57 [facility] 20:32 Discharged to home ambulatory. ag7 20:32 Condition: stable 20:32 Discharge instructions given to patient, Instructed on discharge instructions, follow up and referral plans. medication usage, Demonstrated understanding of instructions, follow-up care, medications, Prescriptions given X 1. 20:33 Patient left the ED. ag7 Signatures: Lauro Sood PA PA jmm Rivera, Mary mr Florecita Cheng, RN RN ll1 Monserrat Garcia RN RN ag7
--- NOTE | 2021-06-09 19:57 | EDPHYS ---
Physician Documentation [facility] Name: Bruce Rosales Age: 35 yrs Sex: Male : 1985 Arrival Date: 06/09/2021 Time: 18:44 Bed 10 Private MD: ED Physician Dl Lakhani HPI: 06/09 19:18 This 35 yrs old Male presents to ER via Ambulatory with complaints of Finger jmm Laceration. 19:18 The patient or guardian reports injury, pain. Onset: The symptoms/episode jmm began/occurred acutely, just prior to arrival. Modifying factors: The symptoms are alleviated by nothing, the symptoms are aggravated by nothing. Associated signs and symptoms: Pertinent negatives: decreased sensation distally, fever, numbness distally, tingling distally. The patient has not experienced similar symptoms in the past. Historical: - Allergies: 18:51 No Known Allergies; ll1 - PMHx: 18:51 None; ll1 - PSHx: 18:51 Appendectomy; Cholecystectomy; ll1 - Immunization history:: Client reports having NOT received the Covid vaccine. Last tetanus immunization: unknown. - Social history:: Smoking status: Patient denies any tobacco usage or history of. ROS: 19:18 Constitutional: Negative for fever, chills, and weight loss, Cardiovascular: Negative jmm for chest pain, palpitations, and edema, Respiratory: Negative for shortness of breath, cough, wheezing, and pleuritic chest pain. 19:18 Skin: Positive for laceration(s). 19:18 All other systems are negative. Exam: 19:18 Constitutional: This is a well developed, well nourished patient who is awake, alert, jmm and in no acute distress. Head/Face: atraumatic. Eyes: EOMI, no conjunctival erythema appreciated ENT: Moist Mucus Membranes Neck: Trachea midline, Supple Chest/axilla: Normal chest wall appearance and motion. Cardiovascular: Regular rate and rhythm. No edema appreciated Respiratory: Normal respirations, no respiratory distress appreciated Abdomen/GI: Non distended, soft Back: Normal ROM 19:18 Skin: 2 cm laceration. Vital Signs: 18:49 BP 164 / 96; Pulse 87; Resp 16; Temp 98.6; Pulse Ox 96% ; Height 5 ft. 8 in. (172.72 ll1 cm); Pain 7/10; Laceration: 19:54 Wound Repair of 2cm ( 0.8in ) subcutaneous laceration to left index fingernail. Distal jmm neuro/vascular/tendon intact. Anesthesia: Digital block administered with 3 mls of 0.5% marcaine. Wound prep: Moderate cleansing with betadine by me. Skin closed with 4 4-0 Prolene using simple sutures and sterile technique. Patient tolerated well. MDM: 19:18 Patient medically screened. [facility] 19:54 Data reviewed: vital signs, nurses notes. Counseling: I had a detailed discussion with [facility] the patient and/or guardian regarding: the historical points, exam findings, and any diagnostic results supporting the discharge/admit diagnosis, the need for outpatient follow up, to return to the emergency department if symptoms worsen or persist or if there are any questions or concerns that arise at home. ED course: Patient given wound infection return precautions. Patient understood and agrees with the plan of care. . Administered Medications: 20:18 Drug: Tetanus-Diphtheria Toxoid Adult 0.5 ml {Director Of Social Work: [employer]. Exp: ag7 04/24/2023. Lot #: [id number]. } Route: IM; Site: left deltoid; 20:32 Follow up: Response: No adverse reaction ag7 Disposition Summary: 06/09/21 19:57 Discharge Ordered Location: Home [facility] Condition: Stable [facility] Diagnosis - Finger Laceration [facility] Followup: [facility] - With: Private Physician - When: 7 - 10 days - Reason: Recheck today's complaints, Continuance of care, Staple/Suture removal, Re-evaluation by your physician Discharge Instructions: - Discharge Summary Sheet [facility] - Laceration Care, Adult [facility] Forms: - Medication Reconciliation Form [facility] - Thank You Letter [facility] - Antibiotic Education [facility] - Prescription Opioid Use [facility] Prescriptions: - Doxycycline Hyclate 100 mg Oral Tablet - take 1 tablet by ORAL route every 12 hours; 20 tablet; Refills: 0, Product [facility] Selection Permitted Addendum: 06/13/2021 07:26 Co-signature as Attending Physician, Dl Lakhani MD I agree with the [facility] and [facility] plan of care. Signatures: Dl Lakhani MD MD kdr Mickail, Joel, PA PA Florecita Bingham RN RN ll1 Jose, Monserrat, RN RN ag7
[2021-06-09] MEDS ORDERED: TETANUS & DIPHTHERIA TOX,ADULT 0.5 ML VIAL ONE (20:14)
[2021-06-09 20:38] VITALS: BP 164/96; TEMP 98.6; O2SAT 96
== END 2021-06-09 20:33 | disposition home or self-care (01) ==
LOC: ER 18:42
PROC: 0JQK0ZZ Repair Left Hand Subcutaneous Tissue and Fascia, Open Approach (ICD-10-PCS; principal; 2021-06-09)
DX: S61.211A Laceration without foreign body of left index finger without damage to nail, initial encounter (principal); Z23 Encounter for immunization
CPT/HCPCS: 90471; 90714; 99283